=== PATIENT | female | born 1950 | race Two or more races ===

== ENCOUNTER → 2017-05-24 | Outpatient (CLI) | payer MEDICARE, MEDICAID ==
[2017-05-24 12:48] LABS: Basophils # (auto) 0.1 uL; Basophils % (auto) 0.8 % (0.0-2.0); CONDITION Y; Eosinophils # (auto) 0.1 uL; Eosinophils % (auto) 1.7 % (0.0-7.0); Hematocrit 46.5 % (36.0-46.0); Hemoglobin 15.8 g/dL (12.2-16.2); Lymphocytes # (auto) 1.6 uL; Mean Corpuscular Hemoglobin 32.1 pg (28.0-32.0); Mean Corpuscular Hgb Conc. 33.9 g/dL (32.0-36.0); Mean Corpuscular Volume 94.7 fL (80.0-100.0); Mean Platelet Volume 9.4 fL (7.4-10.4); Monocytes # (auto) 0.6 uL; Monocytes % (auto) 8.2 % (0.0-12.0); Neutrophils # (auto) 4.6 uL; Neutrophils % (auto) 66.3 % (37.0-80.0); Platelet Count (auto) 227 10^3/uL (140-450); Red Cell Distribution Width 13.2 % (11.6-16.0)
[2017-05-24 13:22] LABS: Urine Bilirubin Negative (Negative); Urine Blood Negative /uL (Negative); Urine Color Yellow (Yellow); Urine Glucose Normal (Normal); Urine Ketone Negative (Negative); Urine Mucus MODERATE (None Seen); Urine Nitrite Negative (Negative); Urine RBC 3 /hpf (0 - 4); Urine Squamous Epithelial Cell MOD /hpf (<5); Urine Urobilinogen Normal (Negative); Urine pH 6.5 (5.0-8.0)
[2017-05-24 13:31] LABS: Albumin 4.3 g/dL (3.4-5.0); BUN/Creatinine Ratio 19.4; Calcium 9.7 mg/dL (8.5-10.1); Potassium 4.6 mmol/L (3.5-5.1)
[2017-05-24 13:33] LABS: Bilirubin, Total 0.5 mg/dL (0.2-1.0); Total Protein 7.5 g/dL (6.4-8.2)
== END | disposition home or self-care (01) ==
LOC: LAB 11:55
PROVIDERS: ATTEND Internal Medicine
DX: I10 Essential (primary) hypertension (principal); E78.2 Mixed hyperlipidemia; E03.9 Hypothyroidism, unspecified; E55.9 Vitamin D deficiency, unspecified
CPT/HCPCS: 36415; 80053; 80061; 81001; 82306; 84443; 85025; 86803

== ENCOUNTER → 2017-09-06 | Emergency (ER) | payer MEDICARE, MEDICAID | END | disposition home or self-care (01) | LOC: ER 13:27 | DX: R51 Headache (principal); Z53.21 Procedure and treatment not carried out due to patient leaving prior to being seen by health care provider ==

== ENCOUNTER → 2018-08-25 | Outpatient (CLI) | payer MEDICARE, MEDICAID ==
[2018-08-25 10:04] LABS: Basophils # (auto) 0.1 uL; Basophils % (auto) 1.2 % (0.0-2.0); Eosinophils # (auto) 0.1 uL; Hematocrit 45.6 % (36.0-46.0); Hemoglobin 15.4 g/dL (12.2-16.2); Lymphocytes # (auto) 1.2 uL; Lymphocytes % (auto) 26.4 % (10.0-50.0); Mean Corpuscular Hemoglobin 32.9 pg (28.0-32.0); Mean Corpuscular Hgb Conc. 33.8 g/dL (32.0-36.0); Mean Corpuscular Volume 97.4 fL (80.0-100.0); Monocytes # (auto) 0.3 uL; Monocytes % (auto) 6.7 % (0.0-12.0); Neutrophils # (auto) 2.9 uL; Neutrophils % (auto) 62.7 % (37.0-80.0); Platelet Count (auto) 145 10^3/uL (140-450); Red Blood Cells 4.69 10^6/uL (4.0-5.20); Red Cell Distribution Width 12.6 % (11.8-14.3); White Blood Cell 4.7 10^3/uL (4.4-10.8)
[2018-08-25 10:48] LABS: Potassium 4.5 mmol/L (3.5-5.1)
[2018-08-25 11:07] LABS: Albumin 3.9 g/dL (3.4-5.0); BUN/Creatinine Ratio 22.7; Bilirubin, Total 0.6 mg/dL (0.2-1.0); Calcium 9.1 mg/dL (8.5-10.1); Total Protein 7.2 g/dL (6.4-8.2)
== END | disposition home or self-care (01) ==
LOC: LAB 09:38
PROVIDERS: ATTEND Physician Assistant
DX: E78.2 Mixed hyperlipidemia (principal); I10 Essential (primary) hypertension; E03.9 Hypothyroidism, unspecified; E55.9 Vitamin D deficiency, unspecified
CPT/HCPCS: 36415; 80053; 80061; 82306; 84443; 85025

== ENCOUNTER → 2019-09-20 | Outpatient (CLI) | payer MEDICARE, MEDICAID ==
[2019-09-20 12:27] LABS: Basophils # (auto) 0.1 uL; Basophils % (auto) 1.2 % (0.0-2.0); Eosinophils # (auto) 0.1 uL; Hematocrit 43.4 % (36.0-46.0); Hemoglobin 14.9 g/dL (12.2-16.2); Lymphocytes # (auto) 1.2 uL; Lymphocytes % (auto) 22.2 % (10.0-50.0); Mean Corpuscular Hemoglobin 33.1 pg (28.0-32.0); Mean Corpuscular Hgb Conc. 34.4 g/dL (32.0-36.0); Mean Corpuscular Volume 96.3 fL (80.0-100.0); Monocytes # (auto) 0.4 uL; Monocytes % (auto) 7.9 % (0.0-12.0); Neutrophils # (auto) 3.5 uL; Neutrophils % (auto) 66.7 % (37.0-80.0); Nucleated Red Blood Cells % 0.2 %; Platelet Count (auto) 138 10^3/uL (140-450); Red Cell Distribution Width 12.3 % (11.8-14.3); White Blood Cell 5.3 10^3/uL (4.4-10.8)
[2019-09-20 13:17] LABS: Potassium 4.3 mmol/L (3.5-5.1)
[2019-09-20 13:25] LABS: Albumin 3.6 g/dL (3.4-5.0); Bilirubin, Total 0.6 mg/dL (0.2-1.0); Calcium 8.9 mg/dL (8.5-10.1)
== END | disposition home or self-care (01) ==
LOC: LAB 11:42
PROVIDERS: ATTEND Physician Assistant
DX: E03.9 Hypothyroidism, unspecified (principal); K21.9 Gastro-esophageal reflux disease without esophagitis; E78.5 Hyperlipidemia, unspecified; I10 Essential (primary) hypertension; E55.9 Vitamin D deficiency, unspecified
CPT/HCPCS: 36415; 80053; 80061; 82306; 84443; 85025

== ENCOUNTER 2025-09-13 08:35 | Day surgery (SDC) | payer OTHER, MEDICAID ==
[~2025-09-13] VITALS: Ht 170.2 cm; Wt 111.1 kg
[~2025-09-13 08:35] MED LIST: ASPI81CH59 PO; ATEN-60 PO; ATOR-507 PO; CHOLCAP4 PO; LEVO-848 PO; LISI2.5T47 PO; METF-489 PO; MULT-195 OR; OMEP20TA PO
[2025-09-13] MEDS ORDERED: PROPOFOL 10 MG/ML 20 ML IV ONE (08:46)
[2025-09-13] MEDS ORDERED: fentaNYL CITRATE 100 MCG/2 ML VL ONE (08:46)
[2025-09-13] MEDS ORDERED: SODIUM CHLORIDE LOCK 10 ML ONE (08:46)
[2025-09-13] MEDS ORDERED: LIDOCAINE 1% INJ PF 5ML AMP ONE (08:46)
[2025-09-13] MEDS ORDERED: LIDOCAINE 2% TOPICAL JELLY 5 ML URJT TOP ONE (08:46)
[2025-09-13] MEDS ORDERED: KETAMINE 50mg/ML 1ml syringe ONE (08:46)
[2025-09-13] MEDS ORDERED: ONDANSETRON HCL 4 MG/2 ML VIAL ONE (08:46)
[2025-09-13] MEDS ORDERED: MEPERIDINE HCL (25 MG/ML) 1ML VIAL ONE (08:46)
[2025-09-13] MEDS ORDERED: ROCURONIUM 10MG/ML 10ML VIAL IV ONE (08:46)
[2025-09-13] MEDS ORDERED: MIDAZOLAM HCL 2MG/2ML 2ml VIAL (1mg/ml) ONE (08:46)
[2025-09-13] MEDS ORDERED: ceFAZolin 2 GM/D5W50ml 50 ML IV ONE (09:05)
[2025-09-13] MEDS ORDERED: HEPARIN SODIUM (PORCINE) 5000 UNITS/ML 1ML VIAL ONE (09:12)
[2025-09-13] MEDS ORDERED: LYMPHAZURIN 1 % INJ 5ML VIAL SC ONE (09:14)
[2025-09-13] MEDS ORDERED: BUPIVACAINE HCL 50 ML ONE (09:19)
[2025-09-13] MEDS ORDERED: HYDROmorphone HCL 2 MG/ML VL/or syr IV PRN ×2 (09:45)
[2025-09-13] MEDS ORDERED: MORPHINE SULFATE 4 MG/ML SYR/VIAL IV PRN ×2 (09:45→10:00)
[2025-09-13] MEDS ORDERED: METOCLOPRAMIDE HCL 5MG/ml INJ 2ml VIAL IV PRN (09:45)
--- NOTE | 2025-09-13 12:14 | DVH ---
NUCLEAR MEDICINE LYMPHOSCINTIGRAPHY HISTORY: MALIGNANT NEOPLASM OF UNSP SITE RIGHT FEMALE BREAST TECHNIQUE/DOSE: 1 mCi Lymphoseek divided equally into 2 syringes. 2 intradermal injections around the nipple of the right breast were performed at the 12:00 and 6:00 positions along the areola line. The right breast and axilla were immediately scanned for activity. FINDINGS: The 2 injection sites around the right nipple are visualized. IMPRESSION: Right breast lymphoscintigraphy
[2025-09-13] MEDS: LIDOCAINE 1% HCL (LOCAL ANESTH.) INJ 20ML MDV ONE (13:00)
[2025-09-13] MEDS: BUPIVACAINE 0.5% MPF INJ 30ML SDV IJ ONE (13:01)
[2025-09-13 13:20] VITALS: PULSE 85; RESP 13; TEMP 97.2; O2SAT 93
[2025-09-13] MEDS: KETOROLAC TROMETH 30 MG/ML 1ML VIAL IV ONE (13:59)
[2025-09-13 14:05] VITALS: PULSE 62; RESP 14; O2SAT 99
[2025-09-13] MEDS: ACCU-CHEK COMFORT CURVE STRIP VI ONE (14:05)
--- NOTE | 2025-09-13 14:14 | DVH ---
MAMMOGRAPHIC GUIDED BREAST NEEDLE LOCALIZATION. INDICATION: SURGICAL SPECIMEN RIGHT BREAST LUMP TECHNIQUE: Informed consent was obtained. The target region was localized using mammography and the laser light grid system. A female technologist was present at all times. The area was prepped and draped in usual sterile fashion. The overlying skin was anesthetized with 1% lidocaine. Utilizing mammographic guidance a 7 cm needle localization wire was inserted into the target region of the right breast FINDINGS: Post needle insertion mammography confirm successful placement of the localization wire. Patient tolerated procedure without complication and transferred to the OR in stable condition. IMPRESSION: Successful mammographic guided right breast needle localization wire placement. Postop radiograph demonstrates the localization wire along with the specified target contained within the specimen. Procedure by Dr. Giordano
[2025-09-13 14:20] VITALS: BP 161/80; PULSE 65; RESP 10; O2SAT 96
--- NOTE | 2025-09-13 14:54 | DVHOP ---
DATE OF SURGERY: 09/13/2025 PREOPERATIVE DIAGNOSES: Right breast invasive ductal carcinoma, ER/AL positive, HER2/yao negative. POSTOPERATIVE DIAGNOSES: Right breast invasive ductal carcinoma, ER/AL positive, HER2/yao negative. PROCEDURES: * Intradermal periareolar injection of Lymphazurin. * Right breast lumpectomy after [employer] localization and right axillary sentinel lymph node biopsy. * Placement of fiducial markings. SURGEON: Rashawn Hernandez MD SALES CENTER ASSOCIATE: None. ANESTHESIOLOGIST: Dr. Champagne. ANESTHESIA: General by means of endotracheal intubation. INTRAOPERATIVE FINDINGS: * [employer] and preoperative marker located within specimen, confirmed with intraoperative mammogram. * Lymphazurin and radioisotope uptake within 1 axillary sentinel lymph node. No further Lymphazurin uptake or radioisotope activity in the axillary fossa. ESTIMATED BLOOD LOSS: Minimal. IV FLUIDS: Per anesthesia charting. URINE OUTPUT: Not recorded given a Raza catheter was not inserted. DRAINS: None. IMPLANTS: Small hemoclips. SPECIMENS: * Right breast lumpectomy marked with two short sutures for superior, two long sutures for lateral, and ink for posterior margin. * Right axillary sentinel lymph node. COMPLICATIONS: None. Procedure well tolerated and transferred to recovery room in stable condition. INDICATIONS FOR PROCEDURE: The patient is an unfortunate 75-year-old female with right breast invasive ductal carcinoma, ER and AL positive and HER2/yao negative. Based on the above-mentioned information, she was recommended to undergo right lumpectomy after [employer] localization with right axillary sentinel node biopsy and possible lymphadenectomy. The procedure, risks, and benefits were explained in a detailed and extensive fashion. Her questions were answered. She understood and agreed to proceed. DESCRIPTION OF PROCEDURE: The patient was met in the preoperative holding area after completing the lymphoscintigraphy. The patient denied having any questions and denied any changes since her last encounter. The right chest was marked indicating the correct site of surgery. She was then transferred to the operating room where she was placed in the dorsal decubitus position on the operating table. Once adequate anesthesia was achieved, the right periareolar region was prepped with alcohol. 5 mL of Lymphazurin were injected intradermally in the periareolar region. At this time, the patient was widely prepped and draped in the usual sterile fashion. Approximately 5-7 minutes transpired before proceeding with the surgical intervention. My attention was directed towards the right breast. An incision was made with a #15 blade over the area of interest. The dermis and subcutaneous tissues were incised to the level of the mammary tissue with electrocautery. Circumferential flaps were created around the area of interest. Using a sterilely draped [employer] probe, circumferential dissection and excision of the [employer] marker using the post [employer] placement mammograms as reference. The specimen was marked in situ with two short sutures for superior, two long sutures per lateral. It was then excised from the posterior margin and marked with ink. It was placed in a radiographic grid and sent to the Radiology Department for a mammogram. Thus mammogram confirmed proper excision of the area in question confirming the placement of the [employer] and the preoperative marker. At this time, the wound was copiously irrigated. All the fluid was evacuated. There was no evidence of active bleeding. The lumpectomy cavity site was marked with small hemoclips at the 3 and 9 o'clock positions as well as the posterior margin. My attention was then directed towards the right axillary region. Local anesthetic was injected in the area of interest. An incision was made in the axillary region. The dermis and subcutaneous tissues were incised to the axillary fossa via electrocautery. Hemostasis was achieved with Hemoclips and electrocautery. Once in the axillary fossa, the sterilely draped Neoprobe was utilized to identify a solitary axillary sentinel lymph node, which also had Lymphazurin uptake. This lymph node was circumferentially dissected. A 10-second count was obtained revealing a Neoprobe count of 1459. The node was sent to the Pathology Department for fresh frozen section. It was negative for metastatic disease. My attention was directed towards the axillary fossa. No further Lymphazurin was observed or radioisotope activity in the background. There was no evidence of any pathologic-appearing lymph node. For this reason, the procedure was terminated. The subcutaneous tissue was approximated with several interrupted 3-0 Vicryl sutures. The dermis was approximated with several interrupted 3-0 Vicryl sutures. The skin was closed with 4-0 Monocryl in a subcuticular fashion for the axillary and the breast. The area was washed and dried. Sterile glue was applied. The patient tolerated well the procedure. There were no complications. She was successfully extubated in the operating room and transferred to the recovery room in stable condition. MD ROWENA Grande/SUSIE TID: [id number] RECEIPT: [id number]
== END 2025-09-13 14:43 | disposition home or self-care (01) ==
LOC: SUR 08:35
DX: C50.911 Malignant neoplasm of unspecified site of right female breast (principal); E11.9 Type 2 diabetes mellitus without complications; M19.90 Unspecified osteoarthritis, unspecified site; E66.01 Morbid (severe) obesity due to excess calories; I10 Essential (primary) hypertension; E03.9 Hypothyroidism, unspecified; K21.9 Gastro-esophageal reflux disease without esophagitis; E78.5 Hyperlipidemia, unspecified; F17.210 Nicotine dependence, cigarettes, uncomplicated; Z79.84 Long term (current) use of oral hypoglycemic drugs; Z79.899 Other long term (current) drug therapy; Z17.0 Estrogen receptor positive status [ER+]; Z17.21 Progesterone receptor positive status; Z91.041 Radiographic dye allergy status; Z98.890 Other specified postprocedural states; Z79.82 Long term (current) use of aspirin; Z79.890 Hormone replacement therapy; Z90.89 Acquired absence of other organs
CPT/HCPCS: 19301; 38525; 38900; 76098; 78195; 82962; 88307; 88331; 88341; 88342; 88360; A9541; J0690; J1644; J1885; J2003; J2175; J2250; J2405; J2704; J3010; J3490; Q9968